=== PATIENT | female | born 1940 | race Caucasian/White ===

== ENCOUNTER 2018-03-11 11:15 | Observation (INO) | payer MEDICARE ==
[2018-03-11] MEDS ORDERED: MORPHINE SULFATE 5 MG/ML PFS IVP ONE ×2 (11:56→13:23)
--- NOTE | 2018-03-11 12:01 | Emergency Department Record ---
History of Present Illness - General Chief Complaint: Fall Injury Stated Complaint: FALL Time Seen by Provider: 03/11/18 11:50 Source: Patient Mode of Arrival: Ambulatory Limitations: No limitations - History of Present Illness Initial Comments: The patient is here due to falling at home. She was at the back of the house and then suddenly fall backwards onto her buttocks and possibly hit her head. There was a possible LOC and the patient is not sure if she was out for any significant amount of time. She denied any CP, SOB, AP, KOROMA or ZELALEM prior to the fall. After the fall she was not able to get up due to R wrist pain and mild buttock pain. She denies any recent illnesses, CP, SOB, or any hx of similar problems in the past. Soon after the patient did get up and has been walking normally since the event. 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 Witnessed: No Place Fall Occurred: Home Loss of Consciousness: Unsure Prolonged Down Time?: Unclear Symptoms Prior to Fall: None Location: Buttocks Severity: Mild Severity scale (1-10): 7 Quality: Aching Associated Symptoms: Denies - Hewett Coma Scale Eye Response: (4) Open spontaneously Motor Response: (6) Obeys commands Verbal Response: (5) Oriented Aishwarya Total: 15 - Related Data Home Medications Medication Instructions Recorded Confirmed Last Taken Alendronate Sodium [Alendronate 70 mg PO WEEKLY 03/11/18 03/11/18 Unknown Sodium] Levothyroxine Sodium [Synthroid] 50 mcg PO DAILY 03/11/18 03/11/18 Unknown Mesalamine [Apriso] 4 cap PO DAILY 03/11/18 03/11/18 Unknown Potassium Chloride [Klor-Con 10] 10 meq PO DAILY 03/11/18 03/11/18 Unknown Triamterene/Hydrochlorothiazid 1 tab PO DAILY 03/11/18 03/11/18 Unknown [Triamterene-Hctz 37.5-25 mg Tb] Allergies Allergy/AdvReac Type Severity Reaction Status Date / Time Anesthetics - Amide Type Allergy HYPERSENSIT Verified 03/11/18 11:28 IVITY Anesthetics - Gabriela Type- Allergy HYPERSENSIT Verified 03/11/18 11:28 Parabens IVITY diazepam [From Valium] Allergy DIFFICULTY Verified 03/11/18 11:28 BREATHING ibuprofen [From Motrin] Allergy ITCHING Verified 03/11/18 11:28 meperidine [From Demerol] Allergy DIFFICULTY Verified 03/11/18 11:28 BREATHING Travel Screening - Travel/Exposure Within Last 30 Days Have you traveled within the last 30 days?: No - Travel/Exposure Within Last Year Have you traveled outside the [place] in the last year?: No - Additonal Travel Details Have you been exposed to anyone with a communicable illness?: No - Travel Symptoms Symptom Screening: None Review of Systems Constitutional: Denies: Chills, Fever Eyes: Denies: Eye discharge ENT: Denies: Congestion Respiratory: Denies: Cough, Dyspnea Past Medical History - SOCIAL HISTORY Smoking Status: Never smoker Alcohol Use: None Drug Use: None - RESPIRATORY Hx Respiratory Disorders: No - CARDIOVASCULAR Hx Cardio Disorders: Yes Hx Hypertension: Yes - NEURO Hx Neuro Disorders: Yes Comment:: tremor - GI Hx GI Disorders: Yes Hx Crohn's Disease: Yes - Hx Genitourinary Disorders: Yes Hx Renal Disease: Yes (rt kidney removal) - ENDOCRINE Hx Endocrine Disorders: Yes Hx Thyroid Disease: Yes - MUSCULOSKELETAL Hx Musculoskeletal Disorders: Yes Hx Arthritis: Yes Hx Osteoporosis: Yes (osteopnia) 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 negative: Tonsillar erythema, Tonsillar exudate - Neck Neck exam: Normal inspection, Full ROM. negative: Tenderness - Respiratory Respiratory exam: Normal lung sounds bilaterally. negative: Respiratory distress - Cardiovascular Cardiovascular Exam: Regular rate, Normal rhythm, Normal heart sounds - GI/Abdominal GI/Abdominal exam: Soft, Normal bowel sounds. negative: Tenderness - Extremities Extremities exam: Tenderness (There is R wrist tenderness.). negative: Normal inspection - Back Back exam: Reports: Normal inspection. Denies: Vertebral tenderness - Neurological Neurological exam: Alert, Normal gait, Oriented X3. negative: Abnormal gait, Motor sensory deficit - Psychiatric Psychiatric exam: negative: Anxious Course Vital Signs 03/11/18 11:29 Temperature 97.8 F Pulse Rate 75 Respiratory 20 Rate Blood Pressure 142/75 Pulse Ox 96 - Reevaluation(s) Reevaluation #1: The patient had been doing very well but after returning from [place] began to have back spasms. She denies any pain with palpation to that area and after receiving more Morphine for the wrist pain she became very nauseated. On exam her spine and ribs are not tender to palpation and there is no bruising evident. Due to the syncopal event we will admit the patient to the hospital overnight for monitoring. 03/11/18 14:02 Reevaluation #2: The patient is doing much better at this time. She is resting comfortably and we did splint her R wrist. I did discuss the issues with the patient and and she does agree to be admitted. I also did discuss the case with Anay and she does accept the admission for Dr. Roach. 03/11/18 14:32 Medical Decision Making - Data Complexity MDM Data: Labs Ordered and/or Reviewed, X-Ray Ordered and/or Reviewed, EKG Ordered and/or Reviewed - Lab Data Result diagrams: 03/11/18 12:02 03/11/18 12:02 - EKG Data -: EKG Interpreted by Me EKG: No Acute Changes, Normal EKG - Radiology Data Radiology results: Report reviewed (Head CT: No acute changes, ), Image reviewed (R wrist: Mildly impacted distal radius fx. Pelvis: neg.) Disposition Disposition: Admit Clinical Impression: Syncope Qualifiers: Syncope type: unspecified Qualified Code(s): R55 - Syncope and collapse Disposition: Still a Patient at [facility] Decision to Admit: Admit from ER Decision to Admit Date: 03/11/18 Decision to Admit Time: 14:55 Accepting Physician: Doc Time Discussed w/Accepting Physician: 14:55 Condition: (2) Stable Time of Disposition: 14:55 Quality - Quality Measures Quality Measures: N/A - Blood Pressure Screening View Details: Yes Does Patient Have Any of the Following: Active Dx of HTN Blood Pressure Classification: Pre-Hypertensive BP Reading Systolic Measurement: 134 Diastolic Measurement: 61 Screening for High Blood Pressure: Patient Exclusion, Hx of HTN [[id number]] Pre-Hypertensive Follow-up Interventions: Referral to alternative/primary care provider.
[2018-03-11 12:15] LABS: BASO % 0.6 % (0-6); EOS % 3.6 % (0-6); GRAN % 65.7 % (47-80); HEMOGLOBIN 14.2 gm/dl (11.6-16.0); LYMPH % 23.3 % (16-45); MEAN CELL VOLUME 91.9 fl (81-97); MEAN CORPUSCULAR HEMOGLOBIN 30.3 pg (27-33); MEAN PLATELET VOLUME 11.2 fl (7.4-10.4); MONO % 6.8 % (0-9); PLATELET COUNT 220 K/uL (130-400); RED BLOOD COUNT 4.68 M/uL (3.80-5.40); RED CELL DISTRIBUTION WIDTH 13.5 % (11.5-14.5); WHITE BLOOD COUNT W/O DIFF 6.4 K/uL (4.2-12.2)
[2018-03-11 12:29] LABS: BLOOD UREA NITROGEN 22 mg/dL (8-23); CREATININE 1.1 mg/dL (0.5-0.9); EST GLOMERULAR FILTRATION RATE 51 mL/min
[2018-03-11 12:31] LABS: GLUCOSE,RANDOM 105 mg/dL (74-109)
[2018-03-11 12:32] LABS: PROTHROMBIN TIME (PATIENT) 10.7 SECONDS (9.5-12.1)
[2018-03-11 12:34] LABS: CREATINE PHOSPHOKINASE 101 U/L (26-192)
[2018-03-11 12:36] LABS: CKMB 2.2 ng/mL (<3.77)
[2018-03-11] MEDS ORDERED: ONDANSETRON HCL IV 4 MG/2 ML VIAL IVP ONE (13:23)
[2018-03-11] MEDS ORDERED: 0.9 % SODIUM CHLORIDE 1000ML 1,000 ML IV PRN (15:25)
[2018-03-11] MEDS ORDERED: ACETAMINOPHEN 325 MG TAB PO PRN (15:25)
[2018-03-11] MEDS: HYDROCODONE/APAP 5/325MG TABLET PO PRN (18:17)
[2018-03-11 19:57] LABS: CKMB 1.9 ng/mL (<3.77)
[2018-03-11] MEDS: BENEFIBER PO SCH (21:39)
[2018-03-12] MEDS: HYDROCODONE/APAP 5/325MG TABLET PO PRN ×3 (01:36→11:03)
[2018-03-12 01:57] LABS: CKMB 1.4 ng/mL (<3.77)
[2018-03-12] MEDS ORDERED: LEVOTHYROXINE SODIUM 50 MCG TABLET PO SCH (07:00)
[2018-03-12 07:05] LABS: BASO % 0.3 % (0-6); EOS % 4.1 % (0-6); GRAN % 57.1 % (47-80); HEMATOCRIT 41.3 % (35.0-47.0); HEMOGLOBIN 13.2 gm/dl (11.6-16.0); LYMPH % 28.1 % (16-45); MEAN CORPUSCULAR HEMOGLOBIN 29.7 pg (27-33); MEAN PLATELET VOLUME 11.5 fl (7.4-10.4); MONO % 10.4 % (0-9); PLATELET COUNT 194 K/uL (130-400); RED BLOOD COUNT 4.44 M/uL (3.80-5.40); RED CELL DISTRIBUTION WIDTH 13.5 % (11.5-14.5); WHITE BLOOD COUNT W/O DIFF 6.1 K/uL (4.2-12.2)
[2018-03-12 07:30] LABS: CREATININE 1.1 mg/dL (0.5-0.9)
--- NOTE | 2018-03-12 07:41 | CT SCAN REPORT ---
EXAM: EMERGENCY HEAD CT WITHOUT CONTRAST HISTORY: SYNCOPAL EPISODE AND FELL TODAY. TECHNIQUE: Axial CT scan of the head was performed without IV contrast. Comparison: None. FINDINGS: No definite acute intracranial hemorrhage identified. No focal mass effect or midline shift apparent. No definite acute infarct or intracranial mass lesion is seen. Mild generalized atrophy. Mild deviation of the nasal septum to the right. No depressed calvarial fracture evident. Moderate opacification of several mastoid air cells on the right. No definite extension into the middle ear cavity. This mastoid opacification could be acute or chronic and may just represent some retained secretions. IMPRESSION: 1. MILD GENERALIZED ATROPHY. 2. NO DEFINITE ACUTE INTRACRANIAL HEMORRHAGE OR FOCAL MASS EFFECT EVIDENT. 3. OPACIFICATION OF SEVERAL MASTOID AIR CELLS ON THE RIGHT. JOB NUMBER: [id number] MTDD
--- NOTE | 2018-03-12 07:45 | RADIOLOGY REPORT ---
EXAM: PELVIS X-RAY SERIES HISTORY: SYNCOPAL EPISODE WITH A FALL, PAIN POSTERIOR PELVIS. TECHNIQUE: AP and bilateral oblique views of the pelvis were obtained. Comparison: AP pelvis as part of the right hip series of 03/12/15. Encounter: Initial. FINDINGS: Since the prior exam the patient has undergone a right LUCY. This was incompletely evaluated on this pelvis x-ray series. Diffuse osteopenia consistent with osteoporosis. Degenerative change in the lower lumbar spine. Degenerative arthritis left hip. Degenerative change of the pubic symphysis. No definite definite acute fracture of the bony pelvis identified. No diastasis of the sacroiliac joints or pubic symphysis seen and no dislocation of either hip evident. IMPRESSION: 1. OSTEOPOROSIS. 2. DEGENERATIVE CHANGE IN THE LOWER LUMBAR SPINE, LEFT HIP, AND PUBIC SYMPHYSIS. 3. POSTOP RIGHT LUCY. 4. NO FRACTURE OF THE BONY PELVIS IDENTIFIED. JOB NUMBER: [id number] MTDD
--- NOTE | 2018-03-12 07:59 | RADIOLOGY REPORT ---
EXAM: RIGHT WRIST HISTORY: PAIN WITH DISTORTION RIGHT WRIST AFTER A FALL. TECHNIQUE: Four views of the right wrist were obtained. Comparison: None. Encounter: Initial. FINDINGS: There is likely a subtle undisplaced compression fracture of the distal radius with a slight cortical buckle along the radial aspect of the distal radius. Some overlying soft tissue swelling as well. No associated ulnar fracture identified. Advanced degenerative arthritis along the radial aspect of the wrist particularly at the first CMC articulation. No dislocation evident. Diffuse osteopenia consistent with osteoporosis. IMPRESSION: 1. APPEARANCE LIKELY REPRESENTING AN UNDISPLACED DISTAL RADIAL FRACTURE. 2. OSTEOPOROSIS. 3. DEGENERATIVE ARTHRITIS PARTICULARLY AT THE FIRST CMC ARTICULATION. JOB NUMBER: [id number] MTDD
[2018-03-12] MEDS: POTASSIUM CHLORIDE 10 MEQ TAB PO SCH ×2 (09:52→10:02)
[2018-03-12] MEDS: TRIAMTERENE 37.5/HCTZ 25 CAPSULE PO SCH ×2 (09:52→10:01)
--- NOTE | 2018-03-12 09:56 | History & Physical ---
History of Present Illness - Date of Service Date of Service for History & Physical: 03/12/18 - History of Present Illness Admitting Diagnosis: 1. Acute Syncope with R Wrist fx. History of Present Illness: Pt. is a 77 year-old female who presented to the ED on 03/11/18 after she fell at home. She states that she was at the back of the house and then suddenly fall backwards onto her buttocks and possibly hit her head. There was a possible LOC and the patient is not sure if she was out for any significant amount of time. She denied any CP, SOB, AP, KOROMA or ZELALEM prior to the fall. After the fall she was not able to get up due to R wrist pain and mild buttock pain. She denies any recent illnesses, CP, SOB, or any hx of similar problems in the past. Soon after the patient did get up and has been walking normally since the event. Her history includes: HTN, benign tremor, Crohn's disease, right nephrectomy for cancer, hypothyroidism, osteopenia. In the ED, her vital signs were stable, BP 142/75, pulse 75, RR 20, T 97.8F, pulse ox of 96%. Her lab findings were unremarkable. EKG was normal, chest xray was normal, head CT showed no acute changes, right wrist x-ray showed mildly impacted distal radius fracture, pelvis x-ray was negative. Her right wrist was splinted and she was admitted for observation because of syncopal episode, cardiology consult for 03/12. 03/12/18: Pt. is resting comfortably in bed. She states her buttocks/lower back and right wrist are tender, but norco is effective in controlling her pain. She continues to deny similar episode of syncope, she states she has a history of right IT band pain and goes to PT twice weekly, but she feels that it is unrelated to her fall. Vital signs and lab results remain stable. Cardiology consult with Mary ordered for today. Carotid dopplers ordered and performed this morning, awaiting results. Will likely discharge home this evening if cleared by cardiology. Travel Screening - Travel/Exposure Within Last 30 Days Have you traveled within the last 30 days?: No - Travel/Exposure Within Last Year Have you traveled outside the [place] in the last year?: No - Additonal Travel Details Have you been exposed to anyone with a communicable illness?: No - Travel Symptoms Symptom Screening: None Review of Systems Constitutional: Denies: Chills, Fever Eyes: Denies: Eye discharge ENT: Denies: Congestion Respiratory: Denies: Cough, Dyspnea Cardiovascular: Reports: As per HPI. Denies: Arrhythmia, Chest pain, Dyspnea on exertion, Edema, Murmurs, Orthopnea, Palpitations, Paroxysmal nocturnal dyspnea, Rheumatic Fever, Syncope Endocrine: Reports: As per HPI. Denies: Fatigue, Heat or cold intolerance, Polydipsia, Polyuria Gastrointestinal: Reports: As per HPI. Denies: Abdominal pain, Constipation, Diarrhea, Hematemesis, Hematochezia, Melena, Nausea, Vomiting Genitourinary: Reports: As per HPI. Denies: Abnormal menses, Discharge, Dyspareunia, Dysuria, Frequency, Hematuria, Incontinence, Retention, Urgency Musculoskeletal: Reports: Back pain, Other (right wrist pain, buttocks pain) Skin: Reports: As per HPI. Denies: Bruising, Change in color, Change in hair/ nails, Lesions, Pruritus, Rash Neurological: Reports: As per HPI. Denies: Abnormal gait, Confusion, Headache, Numbness, Paresthesias, Seizure, Tingling, Tremors, Vertigo, Weakness Psychiatric: Reports: As per HPI. Denies: Anxiety, Auditory hallucinations, Depression, Homicidal thoughts, Suicidal thoughts, Visual hallucinations Hematological/Lymphatic: Reports: As per HPI. Denies: Anemia, Blood Clots, Easy bleeding, Easy bruising, Swollen glands Past Medical History - SOCIAL HISTORY Smoking Status: Never smoker Alcohol Use: None Drug Use: None - RESPIRATORY Hx Respiratory Disorders: No - CARDIOVASCULAR Hx Cardio Disorders: Yes Hx Hypertension: Yes - NEURO Hx Neuro Disorders: Yes Comment:: tremor - GI Hx GI Disorders: Yes Hx Crohn's Disease: Yes - Hx Genitourinary Disorders: Yes Hx Renal Disease: Yes (rt kidney removal) - ENDOCRINE Hx Endocrine Disorders: Yes Hx Thyroid Disease: Yes - MUSCULOSKELETAL Hx Musculoskeletal Disorders: Yes Hx Arthritis: Yes Hx Osteoporosis: Yes (osteopnia) 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 - PSYCH Hx Psych Problems: No - HEMATOLOGY/ONCOLOGY Hx Hematology/Oncology Disorders: Yes Hx Cancer: Yes (kidney) Family Medical History Any Significant Family History?: No H&P Meds/Allergies - Allergies Allergies: Allergies Allergy/AdvReac Type Severity Reaction Status Date / Time Anesthetics - Amide Type Allergy HYPERSENSIT Verified 03/11/18 11:28 IVITY Anesthetics - Gabriela Type- Allergy HYPERSENSIT Verified 03/11/18 11:28 Parabens IVITY diazepam [From Valium] Allergy DIFFICULTY Verified 03/11/18 11:28 BREATHING ibuprofen [From Motrin] Allergy ITCHING Verified 03/11/18 11:28 meperidine [From Demerol] Allergy DIFFICULTY Verified 03/11/18 11:28 BREATHING - Home Medications Home Medications Medication Instructions Recorded Confirmed Last Taken Alendronate Sodium [Alendronate 70 mg PO WEEKLY 03/11/18 03/11/18 Unknown Sodium] Levothyroxine Sodium [Synthroid] 50 mcg PO DAILY 03/11/18 03/11/18 Unknown Mesalamine [Apriso] 4 cap PO DAILY 03/11/18 03/11/18 Unknown Potassium Chloride [Klor-Con 10] 10 meq PO DAILY 03/11/18 03/11/18 Unknown Triamterene/Hydrochlorothiazid 1 tab PO DAILY 03/11/18 03/11/18 Unknown [Triamterene-Hctz 37.5-25 mg Tb] - Active Medications Active Medications: Current Medications Acetaminophen (Tylenol 325mg) 650 mg PO Q6H PRN PRN Reason: PAIN/TEMP Hydrocodone Bitart/Acetaminophen (Carson 5mg/325mg) 1 each PO Q4H PRN PRN Reason: Analgesia Last Admin: 03/12/18 06:22 Dose: 1 each Sodium Chloride () 1,000 mls @ 42 mls/hr IV .[id number] PRN PRN Reason: LARGE VOLUME IV Levothyroxine Sodium (Synthroid) 50 mcg PO DAILYTHY [facility] Last Admin: 03/12/18 06:20 Dose: 50 mcg Non-Formulary ( Mesalamine [Apriso] 3.375mg) 4 cap PO DAILY [facility] Patient Own Med: (Benefiber Powder) 2 each PO BID [facility] Last Admin: 03/11/18 21:39 Dose: Not Given Potassium Chloride (Klor-Con) 10 meq PO DAILY [facility] Triamterene/HCTZ (Dyazide) 1 udcap PO DAILY [facility] Physical Exam - Vital Signs Vital Signs: Vital Signs - Last 24 Hrs Temp Pulse Pulse Resp BP BP Pulse Ox 03/12/18 05:00 98.0 F 52 L 18 126/78 95 03/12/18 01:45 97.8 F 59 L 18 117/62 95 03/12/18 00:12 59 L 16 03/11/18 21:00 16 03/11/18 20:00 97.8 F 60 16 119/80 97 03/11/18 17:25 98.1 F 63 18 120/62 96 03/11/18 15:25 97.8 F 62 18 140/82 100 03/11/18 15:22 62 18 134/61 99 - General General Appearance: Alert, Oriented x3, Cooperative, No acute distress Limitations: No limitations - Head Head exam: Atraumatic, Normocephalic, Normal inspection - Eye Eye exam: Normal appearance, PERRL - ENT Throat exam: Normal inspection. negative: Tonsillar erythema, Tonsillar exudate - Neck Neck exam: Normal inspection, Full ROM. negative: Tenderness - Respiratory Respiratory exam: Normal lung sounds bilaterally. negative: Respiratory distress - Cardiovascular Cardiovascular Exam: Regular rate, Normal rhythm, Normal heart sounds - GI/Abdominal GI/Abdominal exam: Soft, Normal bowel sounds. negative: Tenderness - Rectal Rectal exam: Deferred - exam: Deferred - Extremities Extremities exam: Tenderness (There is R wrist tenderness/swelling). negative: Normal inspection - Back Back exam: Reports: Normal inspection. Denies: Vertebral tenderness - Neurological Neurological exam: Alert, Normal gait, Oriented X3. negative: Abnormal gait, Motor sensory deficit - Psychiatric Psychiatric exam: negative: Anxious - Skin Skin exam: Dry, Intact, Normal color, Warm Results - Labs Result Diagrams: 03/12/18 06:30 03/12/18 06:20 Labs Last 24 Hours: Laboratory Results - last 24 hr 03/11/18 03/12/18 03/12/18 19:15 01:30 06:20 WBC RBC Hgb Hct MCV MCH MCHC RDW Plt Count MPV Gran % Lymphocytes % Monocytes % Eosinophils % Basophils % Sodium 142 Potassium 3.7 Chloride 104 Carbon Dioxide 27.0 Anion Gap 11.0 BUN 21 Creatinine 1.1 H Estimated GFR 51 Random Glucose 94 Calcium 8.7 L CK-MB (CK-2) 1.9 1.4 Troponin T < 0.010 < 0.010 03/12/18 06:30 WBC 6.1 RBC 4.44 Hgb 13.2 Hct 41.3 MCV 93.0 MCH 29.7 MCHC 32.0 RDW 13.5 Plt Count 194 MPV 11.5 H Gran % 57.1 Lymphocytes % 28.1 Monocytes % 10.4 H Eosinophils % 4.1 Basophils % 0.3 Sodium Potassium Chloride Carbon Dioxide Anion Gap BUN Creatinine Estimated GFR Random Glucose Calcium CK-MB (CK-2) Troponin T - Imaging and Cardiology CT scan - head Status: Report reviewed (negative for acute process) VTE H&P Assessment - Risk for VTE Risk for VTE: Yes Risk Level: Very Low Risk Assessment Date: 03/12/18 Risk Assessment Time: 11:37 VTE Orders Placed or Will Be Placed: Yes Plan - Detailed Diagnosis and Plan (1) Syncope Current Visit: Yes Status: Acute Qualifiers: Syncope type: unspecified Qualified Code(s): R55 - Syncope and collapse Base Code: R55 - SYNCOPE AND COLLAPSE Comment: 03/12/18: Pt. had syncopal episode on 03/11 with fall resulting in loss of consiousness and right wrist fracture. Head CT negative. Cardiology consulted and carotid dopplers pending. PT/OT eval ordered today. Vital signs and labs remain stable. (2) Wrist fracture, right Current Visit: Yes Status: Acute Base Code: S62.101A - FRACTURE OF UNSP CARPAL BONE, RIGHT WRIST, INIT FOR CLOS FX Comment: 03/12/18: Right radial impaction fracture secondary to syncopal episode. Splinted in ED, ortho consulted to f/u outpatient (Dr. Neri). Carson 5-325 for pain. (3) At risk for deep venous thrombosis Current Visit: Yes Status: Acute Base Code: Z91.89 - OT PERSONAL RISK FACTORS, NOT ELSEWHERE CLASSIFIED Comment: 03/12/18: Lovenox 40mg SC nightly during admission (4) Full code status Current Visit: Yes Status: Acute Base Code: Z78.9 - OTHER SPECIFIED HEALTH STATUS Comment: 03/12/18: Pt. is full code status
[2018-03-12] MEDS ORDERED: MESALAMINE PO SCH (10:00)
[2018-03-12] MEDS: BENEFIBER PO SCH (11:06)
--- NOTE | 2018-03-12 11:41 | Rehab Evaluation ---
Patient Information - Patient Information Diagnosis: Acute Syncope with Wrist Fracture Ordered Treatment: PT Evaluate and Treat Status: Initial Evaluation Surgery: No Past Medical/Surgical Hx: PAST MEDICAL/SURGICAL HISTORY Past Surgical History rt hip sx syst removal from spinal cord laminectomy choly t& A kidney removal appy PMH - Respiratory Hx Respiratory Disorders No PMH - Cardiovascular Hx Cardiovascular Disorders Yes Hx Abnormal EKG No Hx Cardiac Catheterization No Hx Chest Pain No Hx Congestive Heart Failure No Hx Deep Vein Thrombosis No Hx Edema No Hx Heart Attack No Hx Hypertension Yes Hx Hypotension No Hx Irregular Heartbeat No Hx Palpitations No Hx Pacemaker/Defibrillator No Hx Vascular Disease No Hx Transient Ischemic Attacks No (TIA) PMH - Neuro Hx Neurological Disorders Yes Hx Brain Tumor No Hx Cerebrovascular Accident No Hx Dementia No Hx Dizziness No Hx Headaches No Hx Neuropathy No Hx Parkinson's Disease No Hx Seizures No Hx Speech Problem No Hx Syncope No Hx Transient Ischemic Attacks No (TIA) Comment: tremor PMH - GI Hx Gastrointestinal Disorders Yes Hx Abdominal Pain No Hx Celiac Disease No Hx Crohn's Disease Yes Hx Diverticulitis No Hx Gastrointestinal Bleed No Hx Gastroesophageal Reflux No Hx Hepatitis/Jaundice No Hx Hiatal Hernia No Hx Irritable Bowel No Hx Liver Disease No Hx Nausea/Vomiting No Hx Obstructive Bowel No Hx Pancreatitis No Hx Rectal Bleeding No Hx Ulcer No Hx Weight Loss/Weight Gain No PMH - Hx Genitourinary Disorders Yes Patient No Hx Bladder Problem No Hx Dialysis No Hx Kidney Stones No Hx Renal Disease Yes: rt kidney removal Hx Urinary Tract Infection No PMH - Endocrine Hx Endocrine Disorders Yes Hx Diabetes No Hx Thyroid Disease Yes PMH - Musculoskeletal Hx Musculoskeletal Disorders Yes Hx Arthritis Yes Hx Back Injury No Hx Fibromyalgia No Hx Gout No Hx Musculoskeletal Disease No Hx Osteoporosis Yes: osteopnia 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 The home has 3 steps to enter without a railing. The patient does use her basement for laundry that has a full flight of stairs to get down with a railing on the left when descending. The patient has a tub/shower combination in her bathroom. She prefers to stand with showering, and the shower does have grab bars present. The toilet is slightly elevated and does not have grab bars present. The patient states that she does not use an assistive device for ambulation, but has access to a 4WW and single-point cane.) Precautions: Fall - Time With Patient Total Time Spent With Patient (Min): 30 Treatment Procedures: Detail (PT Initial Evaluation.) Subjective Information - Subjective Information Per Patient (The patient states that she is having back and hip pain after her fall yesterday. The patient is wearing a splint on the R Wrist due to a fracture.) Objective Data - Pain Pain Present: Yes Pain Intensity: 5 (Back and R Arm) Pain Scale Used: Numeric (1 - 10) - Mental Status Patient Orientation: Oriented x3 - ROM Within normal limits (Within normal limits in both LEs at the hips, knees, and ankles.) - Strength/Tone Within normal limits (R Side - Hip Flexion 4/5 ,Hip Abduction/Adduction 5/5, Knee Flexion/Extension 5/5, Ankle Plantarflexion/Dorsiflexion 5/5. L Side Hip Adduction 5/5, Abduction 4/5, Flexion 4/5, Knee Extension 5/5, Knee Flexion 4/5 , Ankle Dorsiflexion/Plantarflexion 5/5.) - Bed Mobility Independent (The patient was able to transfer from supine to sit and sit to supine with use of bed rails.) - Transfers Independent (The patient required CGA x 1 for transferring from sit to stand. Independent with stand to sit.) - Balance Balance Sitting: Good (The patient had no LOB with sitting at the bedside during strength testing.) Balance Standing: Fair (The patient had no LOB with immediate standing at the bedside. The patient had moderate LOB during ambulation activities. Refer to gait section.) - Sensation Intact - Gait Detail (The patient was able to ambulate from one bedside to the other side and back. During ambulation from the beginning side, the patient stated that her legs felt as if they were giving out on her, had some unsteadiness, and was placed into a chair. She was slightly unsteady at this time, but was able to assist transfer back into the chair. After a small break, she was able to ambulate back to the bedside with supervision, and was able to transfer from stand to sit independently.) Therapy Assessment - Therapy Assessment Detail (The patient showed minimally decreased strength and slight unsteadiness with gait. She showed no ROM deficits, but had increased pain due to R wrist fracture. The patient's current condition is evolving, so it is difficult to assess rehab potential. However, with current deficits she would benefit from continued Home PT to address strength and ROM deficits, gait unsteadiness, and functionality inside the home.) Problem List - Problem List Physical Therapy Problem List: Detail (1) Increased Pain in the R Wrist and Back 2) Unsteadiness with gait 3) Decreased Strength in R Hip.) Goals - Goals Physical Therapy Goals: 1) The patient will be able to ambulate household distances safely for safety inside the home environment. 2) The patient will be able to ascend/descend 3 stairs independently to safely enter the home. She will also be able to ascend/descend a full flight of stairs to safely go into her basement in the home environment. Prognosis - Prognosis Moderate Plan - Plan Physical Therapy Plan: The patient will be seen 1-2x/day M-F for gait training activities until d/c from [facility]. The patient would benefit from continued Home PT to for safety assessment in the home environment and continued gait training.
--- NOTE | 2018-03-12 13:28 | US CAROTID DOPPLER REPORT ---
EXAM: STAT BILATERAL CAROTID ARTERIAL DOPPLER ULTRASOUND HISTORY: SYNCOPAL EPISODE. TECHNIQUE: Richard scale, color Doppler and duplex Doppler evaluation of the bilateral carotid arteries was performed. Comparison: None. FINDINGS: 3 Vessel Right Peak Systolic/ End Diastolic Velocities Left Peak Systolic/ End Diastolic Velocities Proximal Common Carotid Artery 85.6 cm/s /10.9 cm/s 101.4 cm/s /19.8 cm/s Mid Common Carotid Artery 69.1 cm/s /16.4 cm/s 77.2 cm/s /20.2 cm/s Distal Common Carotid Artery 64.7 cm/s /14.2 cm/s 70.7 cm/s /22.8 cm/s Proximal Internal Carotid Artery 68.3 cm/s /19.5 cm/s 59.2 cm/s /17.7 cm/s Mid Internal Carotid Artery 68.5 cm/s /21.2 cm/s 70.9 cm/s /25.4 cm/s Distal Internal Carotid Artery 70.7 cm/s /16.8 cm/s 95.5 cm/s /25.4 cm/s Carotid Bulb 45.2 cm/s /12.8 cm/s 42.3 cm/s /12.5 cm/s Proximal External Carotid Artery 54.3 cm/s /5.1 cm/s 90.4 cm/s /11.2 cm/s d d d Right Flow Left Flow Vertebral Artery Antegrade Antegrade The peak systolic velocity ratio on the right is 1.0. The left peak systolic velocity ratio on the left was 1.2. When the images themselves are reviewed, no prominent plaque identified in either carotid artery. The right vertebral is incidentally noted to be smaller than the left probably representing a dominant left vertebral artery. IMPRESSION: 1. NO SIGNIFICANT STENOSIS IDENTIFIED IN EITHER CAROTID ARTERY. 2. 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 JOB NUMBER: [id number] [facility], [place]
--- NOTE | 2018-03-12 14:59 | Rehab Evaluation ---
Patient Information - Patient Information Diagnosis: Acute Syncope with right wrist Fracture Ordered Treatment: OT Evaluate and Treat Status: Initial Evaluation Surgery: No Past Medical/Surgical Hx: PAST MEDICAL/SURGICAL HISTORY Past Surgical History rt hip sx syst removal from spinal cord laminectomy choly t& A kidney removal appy PMH - Respiratory Hx Respiratory Disorders No PMH - Cardiovascular Hx Cardiovascular Disorders Yes Hx Abnormal EKG No Hx Cardiac Catheterization No Hx Chest Pain No Hx Congestive Heart Failure No Hx Deep Vein Thrombosis No Hx Edema No Hx Heart Attack No Hx Hypertension Yes Hx Hypotension No Hx Irregular Heartbeat No Hx Palpitations No Hx Pacemaker/Defibrillator No Hx Vascular Disease No Hx Transient Ischemic Attacks No (TIA) PMH - Neuro Hx Neurological Disorders Yes Hx Brain Tumor No Hx Cerebrovascular Accident No Hx Dementia No Hx Dizziness No Hx Headaches No Hx Neuropathy No Hx Parkinson's Disease No Hx Seizures No Hx Speech Problem No Hx Syncope No Hx Transient Ischemic Attacks No (TIA) Comment: tremor PMH - GI Hx Gastrointestinal Disorders Yes Hx Abdominal Pain No Hx Celiac Disease No Hx Crohn's Disease Yes Hx Diverticulitis No Hx Gastrointestinal Bleed No Hx Gastroesophageal Reflux No Hx Hepatitis/Jaundice No Hx Hiatal Hernia No Hx Irritable Bowel No Hx Liver Disease No Hx Nausea/Vomiting No Hx Obstructive Bowel No Hx Pancreatitis No Hx Rectal Bleeding No Hx Ulcer No Hx Weight Loss/Weight Gain No PMH - Hx Genitourinary Disorders Yes Patient No Hx Bladder Problem No Hx Dialysis No Hx Kidney Stones No Hx Renal Disease Yes: rt kidney removal Hx Urinary Tract Infection No PMH - Endocrine Hx Endocrine Disorders Yes Hx Diabetes No Hx Thyroid Disease Yes PMH - Musculoskeletal Hx Musculoskeletal Disorders Yes Hx Arthritis Yes Hx Back Injury No Hx Fibromyalgia No Hx Gout No Hx Musculoskeletal Disease No Hx Osteoporosis Yes: osteopnia 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 The home has 3 steps to enter without a railing. The patient does use her basement for laundry that has a full flight of stairs to get down with a railing on the left when descending. The patient has a tub/shower combination in her bathroom. She prefers to stand with showering, and the shower does have grab bars present. The toilet is slightly elevated and does not have grab bars present. The patient states that she does not use an assistive device for ambulation, but has access to a 4WW and single-point cane. She is Ind with all ADLs and IADLs.) Precautions: Fall, Other (Right distal radius fracture) - Time With Patient Total Time Spent With Patient (Min): 35 Treatment Procedures: Detail (OT eval low complexity) Subjective Information - Subjective Information Per Patient Objective Data - Pain Pain Present: Yes (-05/11) - Mental Status Patient Orientation: Oriented x3 - Visual Perception Appears within normal limits for therapeutic activities - ROM Not within normal limits (Left UE AROM WNL, Right shoulder flexion limited due to pain, right elbow not tested due to pain, right forearm, wrist and hand immobilized in splint) - Strength/Tone Not within normal limits (Left UE MMT 4+/5, right UE MMT not tested due to fracture) - Coordination Deficit (Left hand coor WNL, right hand/fingers partially immobilized in splint) - Bed Mobility Independent (Ind with supine to sit and sit to supine) - Transfers Needs Assist (CG assist for sit to stand from EOB and chair.) - Balance Balance Sitting: Good Balance Standing: Fair - Sensation Intact - Gait Detail (Pt on telemetry therefore unable to ambulate out of room. Pt able to amb around bed although she had an episode of weakness in legs and needed to sit for a short time.) - ADL's/IADL's Detail (Pt requiring assist for self cares at this time due to right UE immobilization.) Therapy Assessment - Therapy Assessment Detail (Pt presents with decreased Ind with self cares and functional mobility as well as impaired use of right UE due to fracture.) Problem List - Problem List Physical Therapy Problem List: Detail (1) Increased Pain in the R Wrist and Back 2) Unsteadiness with gait 3) Decreased Strength in R Hip.) Occupational Therapy Problem List: Detail (1. Decreased Ind with showering and dressing activities. 2. Decreased right UE function due to pain and immobilization) Goals - Goals Physical Therapy Goals: 1) The patient will be able to ambulate household distances safely for safety inside the home environment. 2) The patient will be able to ascend/descend 3 stairs independently to safely enter the home. She will also be able to ascend/descend a full flight of stairs to safely go into her basement in the home environment. Occupational Therapy Goals: 1. Pt will be Ind with showering. 2. Pt will be Ind with total body dressing 3. Pt will demonstrate AROM exercises within limitation of immobilizer. Prognosis - Prognosis Good Plan - Plan Physical Therapy Plan: The patient will be seen 1-2x/day M-F for gait training activities until d/c from [facility]. The patient would benefit from continued Home PT to for safety assessment in the home environment and continued gait training. Occupational Therapy Plan: OT 2-4 times per week until discharge. Recommend continued OT in the home if she is to discharge in the next day or two.
[2018-03-12] MEDS ORDERED: HYDROCODONE/APAP 5/325MG TABLET PO PRN (16:53)
--- NOTE | 2018-03-12 16:54 | Discharge Summary ---
Providers Discharge Summary Date: 03/12/18 Date of admission: 03/11/18 15:15 Expected Date of Discharge: 03/12/18 Attending physician: JENARO BENOIT Primary care physician: RENATA AMADOR M.D. Consults: Consult Orders 03/11/18 16:45 Consult - Cardiology NOW Consulting Provider: PETE MURPHY Physician Instructions: Reason For Exam: syncopal episode Does pt have current cardiac rehab nurse?: Not Established Physical Exam - Vital Signs Vital Signs: Vital Signs - Last 24 Hrs Temp Pulse Resp BP Pulse Ox 03/12/18 16:06 99.1 F 54 L 18 129/64 94 L 03/12/18 09:00 98.1 F 57 L 18 114/57 92 L 03/12/18 05:00 98.0 F 52 L 18 126/78 95 03/12/18 01:45 97.8 F 59 L 18 117/62 95 03/12/18 00:12 59 L 16 03/11/18 21:00 16 03/11/18 20:00 97.8 F 60 16 119/80 97 03/11/18 17:25 98.1 F 63 18 120/62 96 - General General Appearance: Alert, Oriented x3, Cooperative, No acute distress Limitations: No limitations - Head Head exam: Atraumatic, Normocephalic, Normal inspection - Eye Eye exam: Normal appearance, PERRL - ENT Throat exam: Normal inspection. negative: Tonsillar erythema, Tonsillar exudate - Neck Neck exam: Normal inspection, Full ROM. negative: Tenderness - Respiratory Respiratory exam: Normal lung sounds bilaterally. negative: Respiratory distress - Cardiovascular Cardiovascular Exam: Regular rate, Normal rhythm, Normal heart sounds - GI/Abdominal GI/Abdominal exam: Soft, Normal bowel sounds. negative: Tenderness - Rectal Rectal exam: Deferred - exam: Deferred - Extremities Extremities exam: Tenderness (There is R wrist tenderness/swelling). negative: Normal inspection - Back Back exam: Reports: Normal inspection. Denies: Vertebral tenderness - Neurological Neurological exam: Alert, Normal gait, Oriented X3. negative: Abnormal gait, Motor sensory deficit - Psychiatric Psychiatric exam: negative: Anxious - Skin Skin exam: Dry, Intact, Normal color, Warm Hospitalization - Hospitalization Admission Diagnosis: 1. Acute Syncope with R Wrist fx. - Problem List/Discharge Diagnosis (1) Syncope Status: Acute Discharge Diagnosis: Syncope type: unspecified Qualified Code(s): R55 - Syncope and collapse Base Code: R55 - SYNCOPE AND COLLAPSE Comment: 03/12/18: Pt. had syncopal episode on 03/11 with fall resulting in loss of consiousness and right wrist fracture. Head CT negative. Cardiology consulted and recommended outpatient f/ u in 2 weeks. Carotid dopplers negative. PT/OT eval- home PT was recommended because of tremor- pt. already attends PT twice weekly for right hip/IT band pain. Will plan to d/c home with wheelchair prescription (pt. will by flying to [place] for a 7 day vacation within a few days). (2) Wrist fracture, right Status: Acute Base Code: S62.101A - FRACTURE OF UNSP CARPAL BONE, RIGHT WRIST , INIT FOR CLOS FX Comment: 03/12/18: Right radial impaction fracture secondary to syncopal episode. Splinted in ED, ortho consulted to f/u outpatient (Dr. Neri). Appointment on 03/14. [place] 5-325 for pain- written prescription provided to pt. (3) At risk for deep venous thrombosis Status: Acute Base Code: Z91.89 - OT PERSONAL RISK FACTORS, NOT ELSEWHERE CLASSIFIED Comment: 03/12/18: Will not d/c with prophylaxis because pt. will return to normal level of activity (4) Full code status Status: Acute Base Code: Z78.9 - OTHER SPECIFIED HEALTH STATUS Comment: 03/12: Pt. is full code status - Disposition Pt. will discharge home. She is planning to stay with her daughter (who is a critical care float nurse) for the next 2 weeks. - Hospitalization Course Disposition: Home, Self-Care Hospital Course: Pt. is a 77 year-old female who presented to the ED on 03/11/18 after she fell at home. She states that she was at the back of the house and then suddenly fall backwards onto her buttocks and possibly hit her head. There was a possible LOC and the patient is not sure if she was out for any significant amount of time. She denied any CP, SOB, AP, KOROMA or ZELALEM prior to the fall. After the fall she was not able to get up due to R wrist pain and mild buttock pain. She denies any recent illnesses, CP, SOB, or any hx of similar problems in the past. Soon after the patient did get up and has been walking normally since the event. Her history includes: HTN, benign tremor, Crohn's disease, right nephrectomy for cancer, hypothyroidism, osteopenia. In the ED, her vital signs were stable, BP 142/75, pulse 75, RR 20, T 97.8F, pulse ox of 96%. Her lab findings were unremarkable. EKG was normal, chest xray was normal, head CT showed no acute changes, right wrist x-ray showed mildly impacted distal radius fracture, pelvis x-ray was negative. Her right wrist was splinted and she was admitted for observation because of syncopal episode, cardiology consult for 03/12. 03/12/18: Pt. is resting comfortably in bed. She states her buttocks/lower back and right wrist are tender, but norco is effective in controlling her pain. She continues to deny similar episode of syncope, she states she has a history of right IT band pain and goes to PT twice weekly, but she feels that it is unrelated to her fall. Vital signs and lab results remain stable. Cardiology consult with Mary ordered for today. Carotid dopplers ordered and performed this morning, awaiting results. Will likely discharge home this evening if cleared by cardiology. 1600: Cardiology recommended OP f/u in 2 weeks. Carotid dopplers negative. PT /OT evals completed and home PT was recommended- pt. already goes to PT twice weekly for right hip/IT band pain. Will discharge home. Pt. has f/u scheduled with Dr. Neri on 03/14 and her daughter is in the process of making a f/u with her PCP. PCP: Dr. Amador Cardiology: Dr. Murphy Ortho: Dr. Neri Procedures: Imaging and X-Rays 03/12/18 08:58 ARTERIAL DOPPLER CAROTID MATEO [US] Stat Abnormal Labs: Abnormal Lab Results 03/12/18 03/12/18 Range/Units 06:20 06:30 MPV 11.5 H (7.4-10.4) fl Monocytes % 10.4 H (0-9) % Creatinine 1.1 H (0.5-0.9) mg/dL Calcium 8.7 L (8.8-10.2) mg/dL Condition at Discharge: (2) Stable VTE Discharge VTE Reason For No Overlap Therapy: Not Indicated Discharge Medications - Discharge Medications Home Medications: Ambulatory Orders Alendronate Sodium 70 mg PO WEEKLY 03/11/18 [Last Taken Unknown] Levothyroxine Sodium [Synthroid] 50 mcg PO DAILY 03/11/18 [Last Taken Unknown] Mesalamine [Apriso] 4 cap PO DAILY 03/11/18 [Last Taken Unknown] Potassium Chloride [Klor-Con 10] 10 meq PO DAILY 03/11/18 [Last Taken Unknown] Triamterene/Hydrochlorothiazid [Triamterene-Hctz 37.5-25 mg Tb] 1 tab PO DAILY 03/11/18 [Last Taken Unknown] Discharge Plan - Discharge Instructions Activity at Discharge: Increase Activity as Tolerated Diet at Discharge: Regular Diet Instructions: Hydrocodone/Acetaminophen (By mouth), Syncope (DC) Additional Instructions: 2 Activity: Increase Activity as Tolerated 2 Diet: Regular Diet 2 Additional: Follow up with Dr. Neri on 03/14 at 1415 Follow up with cardiology in 2 weeks as scheduled Follow up with your PCP within 7-10 days Return to the ED if you experience any more syncopal episodes or falls, or any chest pain Quality Measures - Quality Measures Quality Measures: Advance Directives, Documentation of Current Medications in Medical Record, Elder Maltreatment Screen and Follow-Up Plan, Screening for High Blood Pressure and F/U Documented - Current Medications Quality Measure: Measure #130: Documentation of Current Medications Documentation of Current Medications: <Current Medications Documented/Reviewed> [[id number]] - Blood Pressure Screening Quality Measure: Screening for High Blood Pressure and Follow-Up Documented Does Patient Have Any of the Following: Active Dx of HTN Blood Pressure Classification: Pre-Hypertensive BP Reading Systolic Measurement: 134 Diastolic Measurement: 61 Screening for High Blood Pressure: Patient Exclusion, Hx of HTN [G9744] - Advance Directives Quality Measure: Measure #47: Care Plan Advance Directives Established: No Advance Directives Information Provided To Patient: Declined Advance Directives on File: No Living Will: No Power of Mash Preparatory Operator: Yes Power of Mash Preparatory Operator Name: Moon Frank Advance Care Planning: <Care Plan/Decision Maker Documented; Discussed & Documented> [[id number]] - Elder Abuse Suspicion Index Screening: Elder Abuse Suspicion Index Screening Rely on people for bathing, dressing, shopping, banking, etc: No Prevented from getting food, clothes, medication, etc: No Made to feel shamed or threatened by someone: No Forced to sign papers or use money against will: No Feel afraid, touched in ways not wanted or hurt physically: No Poor eye contact, withdrawn, malnourished, cuts or bruises: No Screening Result: Negative result EASI Reference Information: Tim MACDONALD, Luke Gaffney, Liset Moody, Manolo Irizarry.Development and validation of a tool to assist physicians identification of elder abuse: The Elder Abuse Suspicion Index (EASI ). Journal of Elder Abuse and Neglect, 2008; 20 (3): 276-300. - Elder Maltreatment Screen Quality Measures: Elder Maltreatment Screen and Follow-Up Plan Elder Maltreatment Screen: <Negative, No Follow-Up Plan Required> [G8734]
--- NOTE | 2018-03-12 20:35 | Medical Records Consult ---
DATE: 03/12/18 Ms. Pulido is a 77-year-old woman, who was seen in consultation for possible syncope. She states she was locking the door to her house, when she fell. She does not recall any symptoms of lightheadedness and dizziness. She believes she had a mechanical fall. She then made multiple attempts to call her family members and eventually got ahold her . She was brought to [facility], where she was noted to have a right wrist fracture. She had an ECG demonstrating sinus rhythm with no ST/T abnormalities. She has no history of coronary artery disease, hyperlipidemia, or tobacco abuse. She has a history of hypertension, on Triamterene/Hydrochlorothiazide. Her blood pressures here in the hospital are in the low normal range and she has not been receiving her antihypertensive treatment. She does have a history of hypothyroidism. Ms. Pulido notes that she has significant right hip pain and has issues with ambulation as a result. PAST MEDICAL HISTORY: Includes hypothyroidism, Crohn's disease, hypertension, and osteoporosis. PAST SURGICAL HISTORY: Nothing significant. MEDICATIONS CURRENTLY: Alendronate 70 mg weekly Levothyroxine 50 mcg daily Mesalamine 4 mg daily Potassium Chloride 10 mEq daily Triamterene/Hydrochlorothiazide 37.5/25 mg daily ALLERGIES: IBUPROFEN, MEPERIDINE, DIAZEPAM, AND ANESTHETICS CAUSING DIFFICULTY BREATHING AND RASH. SOCIAL HISTORY: She lives with her . She denies any recent tobacco use or alcohol use. FAMILY HISTORY: Noncontributory. PHYSICAL EXAM: GENERAL: She is afebrile. VITAL SIGNS: Stable. LUNGS: Clear to auscultation. CARDIAC: Cardiac exam was normal. ABDOMEN: Soft. EXTREMITIES: Extremities reveal no edema. LABORATORY: Her laboratory profile is within normal limits. IMPRESSION/PLAN: Ms. Pulido is 77 years old, who likely had a fall that was not syncopal in nature but mechanical. She has no significant cardiac risk factors and normal- appearing ECG. Her cardiac exam is normal. She may have had a mechanical fall due to her significant right hip pain. Ms. Pulido will follow-up with me as an outpatient in two weeks and recheck her blood pressure at this time. I recommend discontinuing Triamterene/Hydrochlorothiazide due to low blood pressures. She will have a baseline echocardiogram and further recommendations will then be made at that time. Thank you for this consultation. JOB NUMBER: [id number] [facility] HOSPITALFransisco
[2018-03-12] MEDS ORDERED: ENOXAPARIN 40 MG/0.4 ML SYR SQ SCH (22:00)
[2018-03-18] MEDS ORDERED: Non-Formulary MISC (Alendronate Sodium [Alendronate Sodium] 70 MG) PO SCH (10:00)
== END 2018-03-12 18:04 | disposition home or self-care (01) ==
LOC: ER 11:15 → MEDSURG 15:15
PROVIDERS: ADMIT Internal Medicine; ATTEND Internal Medicine
DX: R55 Syncope and collapse (principal); S52.591A Other fractures of lower end of right radius, initial encounter for closed fracture; W10.9XXA Fall (on) (from) unspecified stairs and steps, initial encounter; I10 Essential (primary) hypertension; E03.9 Hypothyroidism, unspecified; Z85.528 Personal history of other malignant neoplasm of kidney; Z90.5 Acquired absence of kidney; M19.90 Unspecified osteoarthritis, unspecified site; M85.80 Other specified disorders of bone density and structure, unspecified site; M71.38 Other bursal cyst, other site; R25.1 Tremor, unspecified
CPT/HCPCS: 82550; 85025 ×2; 85730; 85610; 82553 ×2; 80048 ×2; 84484 ×2; 72190; 73110; 93880; 70450; 93005 ×2; 93010; G0378 ×2; J2405; J2270; G8978; G8979; G8987; G8988; 96374; 96375; 99220; 99285

== ENCOUNTER 2018-04-01 16:33 | Emergency (ER) | payer MEDICARE ==
--- NOTE | 2018-04-01 16:42 | Emergency Department Record ---
History of Present Illness - General Chief Complaint: Hypertension Stated Complaint: BP IS HIGH, HEAD PAIN Time Seen by Provider: 04/01/18 16:36 Source: Patient Mode of Arrival: Ambulatory Limitations: No limitations - History of Present Illness Initial Comments: 77 yo female presents with a concern about her blood pressure. She was admitted for questionable syncopal spell three weeks ago. At that time she states her HR and BP were running low normal. She was taken off her BP medication. She followed up with her PCP a week ago. He HR and BP were normal at that time. Today she had a scheduled outpatient ECHO and was told her BP was high. She had it checked a home and a local store and it was greater that 200. She took her prior regular full dose of Triamterine about 2 hours ago for the first time in three weeks. She states she has had some mild pressure the head, no vision changes, no coordination changes, no chest pain, shortness of breath or edema. She has a follow up tomorrow with Dr Murphy of cardiology. -: Hour(s) Timing: Gradual onset Description: Other Severity: Mild Improves With: Nothing Worsens With: Nothing Associated Symptoms: Other - [place] Coma Scale Eye Response: (4) Open spontaneously Motor Response: (6) Obeys commands Verbal Response: (5) Oriented [place] Total: 15 - Related Data Allergies Allergy/AdvReac Type Severity Reaction Status Date / Time Anesthetics - Amide Type Allergy HYPERSENSIT Verified 04/01/18 16:42 IVITY Anesthetics - Gabriela Type- Allergy HYPERSENSIT Verified 04/01/18 16:42 Parabens IVITY diazepam [From Valium] Allergy DIFFICULTY Verified 04/01/18 16:42 BREATHING ibuprofen [From Motrin] Allergy ITCHING Verified 04/01/18 16:42 meperidine [From Demerol] Allergy DIFFICULTY Verified 04/01/18 16:42 BREATHING Review of Systems Constitutional: Denies: Chills, Fever, Night sweats, Weakness Eyes: Denies: Eye discharge, Eye pain, Vision change ENT: Denies: Congestion, Throat pain Respiratory: Denies: Cough Cardiovascular: Reports: Syncope (Admission 03/11. No syncope since the admission). Denies: Chest pain, Palpitations Endocrine: Denies: Fatigue Gastrointestinal: Denies: Abdominal pain, Diarrhea, Nausea, Vomiting Genitourinary: Denies: Dysuria, Urgency Musculoskeletal: Reports: Arthralgia (wrist fracture) Skin: Denies: Bruising, Change in color Neurological: Reports: As per HPI, Headache. Denies: Abnormal gait, Confusion, Numbness, Paresthesias, Tingling, Vertigo, Weakness Psychiatric: Denies: Anxiety Hematological/Lymphatic: Denies: Easy bleeding, Easy bruising Past Medical History - SOCIAL HISTORY Smoking Status: Never smoker Drug Use: None - RESPIRATORY Hx Respiratory Disorders: No - CARDIOVASCULAR Hx Cardio Disorders: Yes Hx Hypertension: Yes - NEURO Hx Neuro Disorders: Yes Comment:: tremor - GI Hx GI Disorders: Yes Hx Crohn's Disease: Yes - Hx Genitourinary Disorders: Yes Hx Renal Disease: Yes (rt kidney removal) - ENDOCRINE Hx Endocrine Disorders: Yes Hx Thyroid Disease: Yes - MUSCULOSKELETAL Hx Musculoskeletal Disorders: Yes Hx Arthritis: Yes Hx Osteoporosis: Yes (osteopnia) 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 negative: Conjunctival injection, Periorbital swelling, Scleral icterus - ENT ENT exam: Normal exam, Mucous membranes moist Ear exam: Normal external inspection Nasal Exam: Normal inspection Mouth exam: Normal external inspection Teeth exam: Normal inspection Throat exam: Normal inspection - Neck Neck exam: Normal inspection, Full ROM - Respiratory Respiratory exam: Normal lung sounds bilaterally. negative: Respiratory distress - Cardiovascular Cardiovascular Exam: Regular rate, Normal rhythm, Normal heart sounds. negative : Tachycardia Peripheral Pulses: 2+: Radial (R), Radial (L) - GI/Abdominal GI/Abdominal exam: Soft. negative: Guarding, Rebound, Rigid, Tenderness - Rectal Rectal exam: Deferred - exam: Deferred - Extremities Extremities exam: Normal inspection, Full ROM, Normal capillary refill, Other. negative: Calf tenderness, Joint swelling, Pedal edema, Tenderness - Back Back exam: Reports: Normal inspection. Denies: CVA tenderness (R), CVA tenderness (L) - Neurological Neurological exam: Alert, CN II-XII intact, Oriented X3. negative: Altered - Psychiatric Psychiatric exam: Normal affect, Normal mood. negative: Agitated, Anxious - Skin Skin exam: Dry, Intact, Normal color, Warm Course - Reevaluation(s) Reevaluation #1: EMR was reviewed DC Summary Reviewed from 03/11/18 Cardiology consult reviewed from 03/12/18 04/01/18 16:38 04/01/18 16:42 Vitals reviewed BP 166/108 04/01/18 16:58 Dr Patel reviewed today's ECHO. Normal EF normal valves. 04/01/18 17:34 The CR is 1.0. The repeat BP is improved She has followup tomorrow with cardiology Medical Decision Making - Lab Data Result diagrams: 04/01/18 17:00 Disposition Disposition: Discharge Clinical Impression: Hypertension Disposition: Home, Self-Care Condition: (1) Good Instructions: Hypertension (ED) Additional Instructions: Follow up tomorrow with your ceramics teacher Dr Murphy to discuss your ECHO and your blood pressure Forms: Patient Portal Access Time of Disposition: 17:38 Quality - Quality Measures Quality Measures: N/A - Blood Pressure Screening Does Patient Have Any of the Following: Active Dx of HTN Blood Pressure Classification: Pre-Hypertensive BP Reading Systolic Measurement: 167 Diastolic Measurement: 81 Screening for High Blood Pressure: Patient Exclusion, Hx of HTN [G9744] Pre-Hypertensive Follow-up Interventions: Referral to alternative/primary care provider.
== END 2018-04-01 17:51 | disposition home or self-care (01) ==
LOC: ER 16:33
DX: I10 Essential (primary) hypertension (principal); R51 Headache; Z90.5 Acquired absence of kidney
CPT/HCPCS: 80048; 99283

== ENCOUNTER 2018-04-25 10:21 | Emergency (ER) | payer MEDICARE ==
--- NOTE | 2018-04-25 10:38 | Emergency Department Record ---
History of Present Illness - General Chief complaint: Extremity Problem Stated complaint: RIGHT HAND PAIN SWELLING Time Seen by Provider: 04/25/18 10:25 Source: Patient Mode of Arrival: Ambulatory Limitations: No limitations - History of Present Illness Initial comments: 77 yo female presents with right upper extremity pain. She fractured her wrist earlier in the month. She had been splinted and followed up with Dr Neri in the office on 04/23/ She reports she continues to have pain in the wrist. The wrist was re-XR'ed on the . She was told by Dr Neri the bones appeared to be healing without issues. She continues to have pain up the right arm from the wrist upward. No swelling, no weakness, no numbness, no tingling. No coolness. No new falls or injury. The XR from 04/23 was reviewed on PACS. 03/11 XR non displaced distal radius fracture She is out of the [place] she initially used for pain control She can not take NSAIDs due to having one kidney She took Tylenol without help PCP is Perry RAYO Complaint: Joint pain Onset/Timin -: Days(s) Location: Right, Arm, Hand -: Yes Arthralgia Radiation: Distal Severity scale (1-10): >10 Improves with: Nothing Worsens with: Palpation, Weight bearing Associated Symptoms: Denies other symptoms - Related Data Previous Rx's Medication Instructions Recorded Hydrocodone/Acetaminophen [[place] 1 tab PO Q6H PRN #16 tab 04/25/18 5mg/325mg] Allergies Allergy/AdvReac Type Severity Reaction Status Date / Time Anesthetics - Amide Type Allergy HYPERSENSIT Verified 04/25/18 10:29 IVITY Anesthetics - Gabriela Type- Allergy HYPERSENSIT Verified 04/25/18 10:29 Parabens IVITY diazepam [From Valium] Allergy DIFFICULTY Verified 04/25/18 10:29 BREATHING ibuprofen [From Motrin] Allergy ITCHING Verified 04/25/18 10:29 meperidine [From Demerol] Allergy DIFFICULTY Verified 04/25/18 10:29 BREATHING Travel Screening - Travel/Exposure Within Last 30 Days Have you traveled within the last 30 days?: No - Travel/Exposure Within Last Year Have you traveled outside the [place] in the last year?: No - Additonal Travel Details Have you been exposed to anyone with a communicable illness?: No - Travel Symptoms Symptom Screening: None Review of Systems Constitutional: Denies: Chills, Fever Eyes: Denies: Vision change ENT: Denies: Congestion, Throat pain Respiratory: Denies: Cough Cardiovascular: Denies: Chest pain, Palpitations, Syncope Endocrine: Denies: Fatigue Gastrointestinal: Denies: Abdominal pain, Diarrhea, Nausea, Vomiting Genitourinary: Denies: Dysuria, Frequency Musculoskeletal: Reports: As per HPI, Arthralgia. Denies: Back pain, Joint swelling, Myalgia Skin: Denies: Bruising, Change in color, Rash Neurological: Denies: Headache, Numbness, Tingling, Tremors, Weakness Psychiatric: Denies: Anxiety Hematological/Lymphatic: Denies: Easy bleeding, Easy bruising, Swollen glands Past Medical History - SOCIAL HISTORY Smoking Status: Never smoker Alcohol Use: None Drug Use: None - RESPIRATORY Hx Respiratory Disorders: No - CARDIOVASCULAR Hx Cardio Disorders: Yes Hx Abnormal EKG: No Hx Cardiac Cath: No Hx Chest Pain: No Hx CHF: No Hx Deep Vein Thrombosis: No Hx Edema: No Hx Heart Attack: No Hx Hypertension: Yes Hx Hypotension: No Hx Irregular Heartbeat: No Hx Palpitations: No Hx Pacemaker/Defib: No Hx Vascular Disease: No - NEURO Hx Neuro Disorders: Yes Hx Brain Tumor: No Hx CVA: No Hx Dementia: No Hx Dizziness: No Hx Headaches: No Hx Neuropathy: No Hx Parkinson's Disease: No Hx Seizures: No Hx Speech Problem: No Hx TIA: No Comment:: tremor - GI Hx GI Disorders: Yes Hx Abdominal Pain: No Hx Celiac Disease: No Hx Crohn's Disease: Yes Hx Diverticulitis: No Hx GI Bleed: No Hx Reflux: No Hx Hepatitis/Jaundice: No Hx Hiatal Hernia: No Hx Irritable Bowel: No Hx Liver Disease: No Hx Nausea/Vomiting: No Hx Obstructive Bowel: No Hx Pancreatitis: No Hx Rectal Bleeding: No Hx Ulcer: No Hx Wt Loss/Wt Gain: No Hx of Polyps: No - Hx Genitourinary Disorders: Yes Hx Bladder Problem: No Hx Dialysis: No Hx Kidney Stones: No Hx Renal Disease: Yes (rt kidney removal) Hx UTI: No - ENDOCRINE Hx Endocrine Disorders: Yes Hx Diabetes: No Hx Thyroid Disease: Yes - MUSCULOSKELETAL Hx Musculoskeletal Disorders: Yes Hx Arthritis: Yes Hx Back Injury: No Hx Fibromyalgia: No Hx Gout: No Hx Musculoskeletal Disease: No Hx Osteoporosis: Yes (osteopnia) 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 - PSYCH Hx Psych Problems: No - HEMATOLOGY/ONCOLOGY Hx Hematology/Oncology Disorders: Yes Hx Anemia: No Hx Blood Disorders: No Hx Bruising: No Hx Cancer: Yes (kidney) Hx Chemotherapy: No Hx Radiation Therapy: No Hx Clotting Problems: No Hx Sickle Cell Disease: No Hx Unexplained Bleeding: No Hx Blood Transfusions: No Hx Blood Transfusion Reaction: No Family Medical History Any Significant Family History?: No Physical Exam - General General Appearance: Alert, Oriented x3, Cooperative, No acute distress Limitations: No limitations - Head Head exam: Atraumatic, Normal inspection - Eye Eye exam: Normal appearance. negative: Conjunctival injection, Scleral icterus - ENT ENT exam: Normal exam Ear exam: Normal external inspection Nasal Exam: Normal inspection Mouth exam: Normal external inspection - Neck Neck exam: Normal inspection - Respiratory Respiratory exam: Normal lung sounds bilaterally. negative: Respiratory distress - Cardiovascular Cardiovascular Exam: Regular rate, Normal rhythm, Normal heart sounds Peripheral Pulses: 2+: Radial (R) (Brisk Cap refill, warm hand and fingers) - Rectal Rectal exam: Deferred - exam: Deferred - Extremities Extremities exam: Normal inspection, Normal capillary refill, Tenderness. negative: Full ROM, Joint swelling Image of Hand: 1 - tender wrist, strong radial pulse at +2, brisk cap refill, soft hand, forearm, and upper arm, no abnormal warmth or coolness, no edema, intact skin, no ulcers or erythema, tender at the distal radial area. - Back Back exam: Denies: CVA tenderness (R), CVA tenderness (L) - Neurological Neurological exam: Alert, Normal gait, Oriented X3. negative: Motor sensory deficit - Psychiatric Psychiatric exam: Normal affect, Normal mood - Skin Skin exam: Dry, Intact, Normal color, Warm. negative: Cyanosis, Diaphoretic, Erythema, Mottled Course Vital Signs 04/25/18 10:23 Temperature 98.1 F Pulse Rate 87 Respiratory 20 Rate Blood Pressure 115/84 Pulse Ox 98 - Reevaluation(s) Reevaluation #1: 04/25/18 10:40 Normal inspection, normal pulse, normal cap refill, no swelling, no abnormal warmth or coolness. Warm hand and fingers. Sensation intact She is tender at the fracture site. XR was reviewed form 04/23 and 03/11. Normal healing. Doppler ordered to rule out DVT given the recent immobilization The patient drove herself without a bobtail driver. She was given Tylenol. 04/25/18 10:47 04/25/18 11:37 The venous doppler for DVT was negative. It was a normal study She will be splinted with a velcro splint for support and comfort No signs of DVT, no physical signs of arterial insufficiency, normal RUE neuro examination, no edema, no signs of infection. 04/25/18 11:42 The wrist splint provided to the pateint gave her very good pain control and a position of comfort Disposition Disposition: Discharge Clinical Impression: Wrist fracture, closed Qualifiers: Encounter type: initial encounter Laterality: right Qualified Code(s): S62.101A - Fracture of unspecified carpal bone, right wrist, initial encounter for closed fracture Disposition: Home, Self-Care Condition: (1) Good Instructions: Wrist Fracture in Adults (ED) Additional Instructions: Elevate and ice the wrist to prevent swelling Return over the week end for a recheck if you have any swelling, redness, numb, tingling, uncontrolled pain Use the velcro wrist splint for comfort and support If you have any continued pain call to see your orthopedic doctor again for a recheck. Prescriptions: Hydrocodone/Acetaminophen [[place] 5mg/325mg] 1 tab PO Q6H PRN #16 tab PRN Reason: Pain - General Forms: Patient Portal Access Time of Disposition: 11:38 Quality - Quality Measures Quality Measures: N/A - Blood Pressure Screening Does Patient Have Any of the Following: Active Dx of HTN Blood Pressure Classification: Pre-Hypertensive BP Reading Systolic Measurement: 115 Diastolic Measurement: 84 Screening for High Blood Pressure: Patient Exclusion, Hx of HTN [G9744]
[2018-04-25] MEDS ORDERED: ACETAMINOPHEN 500 MG TABLET PO ONE (10:40)
--- NOTE | 2018-04-27 17:41 | US VENOUS DOPPLER REPORT ---
EXAM: ULTRASOUND VENOUS DOPPLER UPPER EXT RT HISTORY: ARM PAIN AFTER CAST REMOVAL. TECHNIQUE: Venous Doppler ultrasound of the right upper extremity performed from the region of the right subclavian vein through the axillary and arm veins through the forearm veins of the distal forearm. Color-flow and spectral analysis was utilized and compression and flow augmentation maneuvers were performed as well. COMPARISON: No prior venous Doppler ultrasound of the right upper extremity. FINDINGS: The venous Doppler ultrasound of the right upper extremity appears negative with no definite DVT identified in the right upper extremity. Flow is seen throughout. Compression and flow augmentation was also demonstrated. IMPRESSION: NEGATIVE VENOUS DOPPLER ULTRASOUND OF THE RIGHT UPPER EXTREMITY WITH NO DEFINITE DVT IDENTIFIED. JOB NUMBER: [id number] MTDD
== END 2018-04-25 11:56 | disposition home or self-care (01) ==
LOC: ER 10:21
DX: M25.531 Pain in right wrist (principal); Z47.89 Encounter for other orthopedic aftercare; I10 Essential (primary) hypertension
CPT/HCPCS: 99283